=== PATIENT | female | born 1940 | race Caucasian/White ===

== ENCOUNTER 2017-04-06 18:05 | Emergency (ER) | payer MEDICARE, BC ==
[~2017-04-06] VITALS: Ht 165.1 cm; Wt 73.0 kg
[~2017-04-06 18:05] MED LIST: ATEN1TAB55 PO; LOVA40TA PO; OMEP40CA2 PO; VITA400C59 CHEW
[2017-04-06 18:24] VITALS: BP 126/58; PULSE 97; RESP 16; TEMP 98.3; O2SAT 100
== END 2017-04-06 20:14 | disposition left against medical advice (07) ==
LOC: PHED 18:05
DX: Z53.21 Procedure and treatment not carried out due to patient leaving prior to being seen by health care provider (principal)
CPT/HCPCS: 99281

== ENCOUNTER → 2017-04-21 | Day surgery (SDC) | payer MEDICARE, BC ==
[~2017-04-21] MED LIST changes: +BUPIVACAINE HCL PF 0.25% 30 ML VIAL ONE; +KETOROLAC TROMETHAMINE 30 MG/ML (IVP) VIAL IV PUSH ONE; +LACTATED RINGER'S 1000 ML INJ 1,000 ML ONE; +ONDANSETRON HCL 4 MG/2 ML VIAL IV PUSH ONE; +PROPOFOL 200 MG/20 ML AMP IV ONE; +ceFAZolin 2 GM PREMIX 50 ML ONE
--- NOTE | 2017-04-21 21:41 | MP ---
cc: JUAN MANUEL [facility] DATE OF SURGERY: 04/21/2017 PREOPERATIVE DIAGNOSIS: Right hallux abductovalgus with painful bunion second digit hammertoe with metatarsalgia. POSTOPERATIVE DIAGNOSIS Right hallux abductovalgus with painful bunion second digit hammertoe with metatarsalgia. PROCEDURES PERFORMED 1. Right first metatarsal osteotomy. 2. Proximal phalanx osteotomy of the hallux. 3. Second digit PIPJ fusion. 4. Second metatarsal osteotomy. INJECTABLES 18 cc of 0.25% Marcaine plain. TOURNIQUET TIME 72 minutes at a setting of 215 mmHg of the patient's right ankle. ANESTHESIA: General with local. IMPLANTABLES [employer] titanium 3.0 cannulated screw x2, x1 3.0 headless cannulated screw and x1 2.0 cannulated screw. COMPLICATIONS None DISPOSITION DC home once stable per same-day surgery criteria. JUSTIFICATION FOR PROCEDURE: This is a pleasant 76-year-old female with worsening bunion pain, ability to wear normal shoe gear. We devised a plan to move forward with surgical intervention. The patient understood numbness, burning, stinging, stiffness, recurrence of this deformity, possible infection all reviewed. No guarantees given or implied regarding outcome. PROCEDURE IN DETAIL Under mild sedation the patient was brought to the operating room, placed on the operating room table in the supine position. Following the induction of general anesthesia, local anesthesia was obtained about the forefoot utilizing standard block fashion. The right foot was then scrubbed, prepped and draped in the usual aseptic fashion, elevated, exsanguinated, and the previously placed mid calf tourniquet was inflated 215 mmHg. An incision was made over the dorsal aspect of the patient's IPJ, coursing over 3 to 4 cm proximal to the first MPJ. Sharp and blunt dissection was carried down to the periosteum and capsular layer. An L-shaped capsulotomy was performed revealing a prominent dorsomedial eminence with moderate arthritic findings seen within the first MPJ. Sharp and blunt dissection was then carried down to the level of the first interspace, to the level of the conjoined tendon and the fibular suspensory ligament was then severed freeing up lateral contractures. Next a power saw was used to remove the prominent dorsomedial eminence. Next an offset V osteotomy was performed and the capital fragment was then transposed laterally 4 mm and then fixated utilizing x2 3.0 cannulated screws utilizing proper AO technique. The prominent redundant shelf proximally was transected to smooth bony contour. There was still mild distal deformity and hallux valgus noted. Next a osteotomy was performed of the patient's proximal phalanx with the apex being proximal lateral and the wedge portion being medial. Reciprocal planing took place closing down the hallux abductus ankle at the distal articular set angle. A wire was then placed serving as a temporary fixation for a 3.0 headless cannulated screw. This was placed from proximal medial traversing to distal lateral compressing down the osteotomy. There was noted to be straight hallux, absent bunion. The wound was flushed with copious amounts of normal saline. The periosteum and capsular layer was repaired utilizing Vicryl. The deep dermis was closed utilizing Vicryl. Skin was closed utilizing nylon. Next incision was made over the dorsal aspect of the second digit PIPJ which was slight curvilinear at the level of the second MPJ. Sharp and blunt dissection was carried down to a bow strung extensor digitorum longus tendon. A Z tendon lengthening approach took place revealing relaxation. A linear capsulotomy was performed at the level of the second MPJ. McGlamry elevator was introduced freeing up plantar and lateral contractures. A dorsal distal to plantar proximal second metatarsal osteotomy was performed and the head was then transposed proximally 2 mm then fixated utilizing proper AO technique with a 2.0 screw. The prominent dorsal shelf was then transected allowing ease of range of motion. Sharp and blunt dissection was carried down to the level of the PIPJ. The head the proximal phalanx was transected and the base of the middle phalanx was also transected preparing for fusion. A wire was then placed through the middle phalanx to the distal phalanx and retrograded back across the proximal phalanx securing past the second MPJ. There is noted to be excellent alignment. The tendon was then loosely coapted under physiologic tension, utilizing Vicryl. The deep dermis was closed utilizing Vicryl. Skin was closed utilizing nylon. Upon relieving the tourniquet there is a prompt hyperemic response to all digits without any delayed capillary fill time. A bulky bandage placed. The patient was then positioned within a controlled ankle motion boot. She is admitted heel transfer and partial weightbearing. She will follow up within 3-5 days. SHADIA Gracia/SABRINA /4:12 PM /9:26 PM
== END | disposition home or self-care (01) ==
LOC: ESDC 13:19
PROVIDERS: ATTEND Podiatrist Foot & Ankle Surgery
DX: M20.11 Hallux valgus (acquired), right foot (principal); M21.611 Bunion of right foot; M20.41 Other hammer toe(s) (acquired), right foot
CPT/HCPCS: 01480; 28285; 28299; 28308; 73620; 76000; C1713; J0690; J1885; J2405; J3010; J7120